=== PATIENT | male | born 1985 | race Hispanic/Latino ===

== ENCOUNTER 2021-04-08 12:13 | Inpatient (IN) | payer SELFPAY ==
[~2021-04-08] VITALS: Ht 182.9 cm; Wt 127.9 kg
[2021-04-08 12:15] VITALS: BP 147/91
[2021-04-08 12:40] LABS: BASOPHILS % (AUTO) 0.5 % (0.0-5.0); EOSINOPHILS % (AUTO) 1.1 % (0.0-8.0); LYMPHOCYTES % (AUTO) 17.9 % (21.0-51.0); MEAN CORPUSCULAR HEMOGLOBIN 26.5 pg (27.0-33.0); MEAN CORPUSCULAR HGB CONC 30.7 g/dL (32.0-36.0); MEAN CORPUSCULAR VOLUME 86.2 fL (79-99); MONOCYTES % (AUTO) 9.2 % (3.0-13.0); PLATELET COUNT (AUTO) 379 K/uL (130-400); RED BLOOD CELL COUNT(AUTO) 4.99 MIL/uL (4.50-6.20); RED CELL DISTRIBUTION WIDTH 14.5 % (11.0-15.5); WHITE BLOOD COUNT (AUTO) 11.4 K/uL (4.8-10.8)
[2021-04-08 12:48] LABS: POTASSIUM 4.4 mmol/L (3.5-5.1)
[2021-04-08 12:53] LABS: ALBUMIN 3.7 g/dL (3.5-5.0); BILIRUBIN,TOTAL 0.5 mg/dL (0.2-1.0); TOTAL PROTEIN, SERUM 8.2 g/dL (6.0-8.3)
[2021-04-08] MEDS ORDERED: SOLU-MEDROL 125MG VIAL IVP ONE (13:15)
[2021-04-08] MEDS ORDERED: DiphenhydrAMINE HCL 50 MG/ML VIAL IV ONE (13:15)
[2021-04-08] MEDS ORDERED: IPRATROPIUM/ALBUTEROL SULFATE 3 ML SOLUTION IH PRN (13:15)
[2021-04-08] MEDS ORDERED: 0.9%NACL 1000ML 1,000 ML IV ONE (13:15)
[2021-04-08 13:19] VITALS: BP 138/81
[2021-04-08] MEDS ORDERED: IPRATROPIUM/ALBUTEROL SULFATE 3 ML SOLUTION IH SCH ×2 (14:00)
[2021-04-08] MEDS ORDERED: RACEPINEPHRINE HCL 2.25% 0.5 ML NEB SOLN ONE (14:14)
[2021-04-08] MEDS ORDERED: RACEPINEPHRINE HCL 2.25% 0.5 ML NEB SOLN NEB SCH (14:30)
[2021-04-08] MEDS ORDERED: ONDANSETRON 4MG INJ IV PRN (15:15)
[2021-04-08] MEDS ORDERED: ACETAMINOPHEN 325 MG TAB PO PRN ×2 (15:15)
[2021-04-08] MEDS ORDERED: DiphenhydrAMINE HCL 50 MG/ML VIAL IV PRN (15:15)
[2021-04-08] MEDS ORDERED: LACTULOSE 20 GM/30 ML UDCUP PO PRN (15:15)
[2021-04-08] MEDS ORDERED: PHARMACY COMMUNICATION MISC SCH (15:30)
[2021-04-08 15:39] VITALS: BP 141/73
[2021-04-08] MEDS: SOLU-MEDROL 40MG VIAL IVP SCH (18:00)
[2021-04-08 18:28] VITALS: BP 150/93
[2021-04-08] MEDS: IPRATROPIUM/ALBUTEROL SULFATE 3 ML SOLUTION IH SCH ×2 (18:51→23:14)
[2021-04-08] MEDS: FAMOTIDINE 20MG TAB PO SCH (21:01)
[2021-04-08] MEDS ORDERED: LEVO150T94 PO (21:06)
[2021-04-08 21:23] VITALS: BP 122/55
[2021-04-08] MEDS: RACEPINEPHRINE HCL 2.25% 0.5 ML NEB SOLN NEB PRN (23:28)
[2021-04-08 23:42] VITALS: BP 119/66
[2021-04-09] VITALS (20 sets, daily range): BP systolic 112–149; BP diastolic 58–101
[2021-04-09 05:33] LABS: BASOPHILS % (AUTO) 0.1 % (0.0-5.0); HEMATOCRIT 41.1 % (42-54); LYMPHOCYTES % (AUTO) 10.2 % (21.0-51.0); MEAN CORPUSCULAR HEMOGLOBIN 27.1 pg (27.0-33.0); MEAN CORPUSCULAR HGB CONC 31.1 g/dL (32.0-36.0); MEAN CORPUSCULAR VOLUME 87.1 fL (79-99); MONOCYTES % (AUTO) 1.7 % (3.0-13.0); NEUTROPHILS % (AUTO) 87.5 % (40.0-77.0); PLATELET COUNT (AUTO) 351 K/uL (130-400); RED BLOOD CELL COUNT(AUTO) 4.72 MIL/uL (4.50-6.20); RED CELL DISTRIBUTION WIDTH 14.7 % (11.0-15.5)
[2021-04-09 05:57] LABS: CREATININE 0.9 mg/dL (0.5-1.5); POTASSIUM 4.4 mmol/L (3.5-5.1)
[2021-04-09] MEDS: SOLU-MEDROL 40MG VIAL IVP SCH ×2 (06:07→17:22)
[2021-04-09] MEDS: IPRATROPIUM/ALBUTEROL SULFATE 3 ML SOLUTION IH SCH ×4 (06:19→23:27)
[2021-04-09] MEDS: RACEPINEPHRINE HCL 2.25% 0.5 ML NEB SOLN NEB PRN ×2 (06:20→19:50)
[2021-04-09] MEDS: FAMOTIDINE 20MG TAB PO SCH ×2 (09:22→20:32)
[2021-04-09] MEDS: ENOXAPARIN SODIUM 40 MG/0.4 ML SYRINGE SQ SCH (09:23)
[2021-04-09] MEDS: LORATADINE 10 MG TABLET PO SCH (09:47)
[2021-04-09] MEDS ORDERED: BENZOCAINE/LANOLIN/ALOE VERA 60 ML AEROSOL TP PRN (16:15)
[2021-04-09] MEDS ORDERED: LIDOCAINE HCL 2% JELLY 5 ML TP SCH (16:15)
[2021-04-09] MEDS ORDERED: MIDAZOLAM HCL 1 MG/ML 2ML VIAL IVP SCH (16:15)
[2021-04-09] MEDS ORDERED: MIDAZOLAM HCL 1 MG/ML 2ML VIAL ONE (16:22)
[2021-04-09] MEDS ORDERED: BENZOCAINE 20% 57 GM SPRAY TP SCH (16:30)
[2021-04-09] MEDS ORDERED: LIDOCAINE HCL/PF 4% 40 MG/1 ML 5ML AMP IH ONE (16:30)
[2021-04-10] VITALS (16 sets, daily range): BP systolic 126–157; BP diastolic 69–107
[2021-04-10] MEDS: IPRATROPIUM/ALBUTEROL SULFATE 3 ML SOLUTION IH SCH ×2 (06:00→11:28)
[2021-04-10] MEDS: SOLU-MEDROL 40MG VIAL IVP SCH (06:24)
[2021-04-10] MEDS: LORATADINE 10 MG TABLET PO SCH (08:08)
[2021-04-10] MEDS: FAMOTIDINE 20MG TAB PO SCH (08:08)
[2021-04-10] MEDS: ENOXAPARIN SODIUM 40 MG/0.4 ML SYRINGE SQ SCH (08:09)
[2021-04-10] MEDS: RACEPINEPHRINE HCL 2.25% 0.5 ML NEB SOLN NEB PRN (11:28)
[2021-04-10] MEDS ORDERED: PANTOPRAZOLE 40 MG TAB DR PO SCH (15:00)
[2021-04-10] MEDS ORDERED: FAMO20TA8 PO (15:53)
[2021-04-10] MEDS ORDERED: EPIN0.3P3 IJ (15:53)
[2021-04-10] MEDS ORDERED: LORA10TA7 PO (15:53)
[2021-04-10] MEDS ORDERED: METH4TAB3 PO (15:53)
[2021-05-24] MEDS ORDERED: DIPH50CA37 PO (07:57)
== END 2021-04-10 17:05 | disposition home or self-care (01) | DRG 189 ==
LOC: EDH 12:13 → UNDOADMOB 12:14 → OBSVTOIN 12:14 → EDHIP 12:14 → INTOOBSV 12:14 → EDHIP 04-09 11:00 → 2DH 04-09 11:00 → UNDODISIN 04-10 17:05
PROVIDERS: ADMIT Hospitalist; ATTEND Hospitalist
PROC: 5A09357 Assistance with Respiratory Ventilation, Less than 24 Consecutive Hours, Continuous Positive Airway Pressure (ICD-10-PCS; principal; 2021-04-09)
PROC: 5A09357 Assistance with Respiratory Ventilation, Less than 24 Consecutive Hours, Continuous Positive Airway Pressure (ICD-10-PCS; 2021-04-10)
DX: J96.00 Acute respiratory failure, unspecified whether with hypoxia or hypercapnia (principal); J98.11 Atelectasis; T78.2XXA Anaphylactic shock, unspecified, initial encounter; E03.9 Hypothyroidism, unspecified; F17.210 Nicotine dependence, cigarettes, uncomplicated; Z87.892 Personal history of anaphylaxis; D72.829 Elevated white blood cell count, unspecified; K42.9 Umbilical hernia without obstruction or gangrene; Y92.89 Other specified places as the place of occurrence of the external cause; E66.9 Obesity, unspecified; Z68.38 Body mass index [BMI] 38.0-38.9, adult; G47.33 Obstructive sleep apnea (adult) (pediatric); Z88.1 Allergy status to other antibiotic agents; Z88.0 Allergy status to penicillin; Z88.8 Allergy status to other drugs, medicaments and biological substances
CPT/HCPCS: 36415; 70490; 71045; 71250; 80048; 80053; 85025; 87071; 87205; 94010; 94640; 94660; 94664; 99291; G0378; J1200; J1650; J2250; J2920; J2930; J3490

== ENCOUNTER 2021-05-24 04:08 | Emergency (ER) | payer SELFPAY ==
[~2021-05-24 04:08] MED LIST: EPIN0.3P3 IJ; FAMO20TA8 PO; LEVO150T94 PO; LORA10TA7 PO; METH4TAB3 PO
[2021-05-24 05:16] VITALS: BP 144/69
[2021-05-24 06:24] VITALS: BP 135/80
[2021-05-24] MEDS ORDERED: FAMO40TA75 PO (07:57)
[2021-05-24] MEDS ORDERED: AZIT500T4 PO (07:57)
[2021-05-24] MEDS ORDERED: PRED20TA3 PO (07:57)
[2021-05-24] MEDS ORDERED: BENZ-17 PO (07:57)
[2021-05-24] MEDS ORDERED: DIPH50CA4 PO (07:57)
== END 2021-05-24 08:27 | disposition home or self-care (01) ==
LOC: EDH 04:08
DX: T78.49XA Other allergy, initial encounter (principal); Z88.0 Allergy status to penicillin; Z88.1 Allergy status to other antibiotic agents; Z79.52 Long term (current) use of systemic steroids; Z88.8 Allergy status to other drugs, medicaments and biological substances; X58.XXXA Exposure to other specified factors, initial encounter